=== PATIENT | male | born 1965 | race Caucasian/White ===

== ENCOUNTER 2022-05-12 08:25 | Outpatient (CLI) | payer OTHER, SELFPAY ==
[2022-05-12 08:51] LABS: Kit Draw Collected
== END 2022-05-12 08:26 | disposition home or self-care (01) ==
LOC: ANHGOSHLAB 08:28
PROVIDERS: PCP Family Medicine; Visit Provider Family Medicine
DX: I10 Essential (primary) hypertension (principal); Z13.220 Encounter for screening for lipoid disorders; Z12.5 Encounter for screening for malignant neoplasm of prostate
CPT/HCPCS: 36415

== ENCOUNTER 2022-07-06 07:56 | Day surgery (SDC) | payer OTHER, SELFPAY ==
[2022-06-22 14:42] VITALS: BMI 32.5
--- NOTE | 2022-07-03 14:24 | PM.HPGS ---
History of Present Illness History of Present Illness Consent: Risks, benefits, and alternatives have been discussed and questions answered. Patient agrees to proceed with procedure. Chief complaint: Neoplasm Screening, History of Polyps Narrative: Esteban Robison is a 57 year old male Who was referred for colon cancer screening. Seven years ago he had 1 polyp removed. Review of Systems Review of Systems: All systems reviewed & are unremarkable except as noted in HPI and below PMFSH Past Medical History Medical History Arthritis of right acromioclavicular joint Essential (primary) hypertension Obesity, unspecified Subacromial impingement of right shoulder Surgical History Surgical History History of surgery on wrist right- 1999 Family History Family History Sibling Family history of osteoarthritis Mother Family history of lung cancer Father Family history of malignant neoplasm of esophagus Social History Social History Smoking status: Former smoker Tobacco type: cigarettes Second hand tobacco smoke exposure: No Alcohol intake: current Drinks per week: 3 Alcohol use details: beer/wine occasionally Substance use: never Substance use type: does not use Living arrangements: with family Occupation/Education: occupation 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 Gender identity (if verbalized by the patient): Male Spiritual care concerns: No Meds Home Medications and Allergies Home Medications Medication Instructions Recorded Confirmed Type amlodipine 10 mg tablet 10 mg PO DAILY 06/22/22 07/06/22 History Allergies Allergy/AdvReac Type Severity Reaction Status Date / Time No Known Allergies Allergy Verified 07/06/22 09:21 Exam Const: General: alert Orientation/consciousness: patient oriented x3 Resp: Auscultation: clear to auscultation bilaterally Cardio: Rhythm: regular rhythm GI: GI Palp: Yes Soft to palpation and No Tenderness to palpation present (GI) Neuro: General: patient oriented x3 Assessment and Plan Assessment and plan (1) Colon cancer screening: Code(s): Z12.11 - Encounter for screening for malignant neoplasm of colon Status: Acute Assessment and Plan: Colonoscopy with possible biopsy or polypectomy or cautery or injection of substances.
--- NOTE | 2022-07-06 07:22 | WPDANESEPPF ---
Anes - Initial Pre Proc Eval Procedure: Operation Date: 07/06/22 10:00 Proposed Procedures p Screening Colonoscopy - Tye Guerrero MD Date/Time: 07/06/22 07:22 Surgeon: Tye Guerrero MD Pre Op Diagnosis: Neoplasm Screening, History of Polyps Patient Data Age: 57 Gender: M Height: 1.75 m Weight: 100 kg Allergies Allergy/AdvReac Type Severity Reaction Status Date / Time No Known Allergies Allergy Verified 07/06/22 09:21 Home Medications Medication Instructions Recorded Confirmed Type amlodipine 10 mg tablet 10 mg PO DAILY 06/22/22 07/06/22 History Patient hx anesthesia problems: none Family hx anesthesia problems: none Results Review: All pre-operative results and documents have been reviewed as part of the pre-operative evaluation. [facility] Past Medical History Medical History (Updated 07/03/22 @ 14:24 by Tye Guerrero MD) Arthritis of right acromioclavicular joint Essential (primary) hypertension Obesity, unspecified Subacromial impingement of right shoulder Surgical History Surgical History History of surgery on wrist right- 1999 Family History Family History Sibling Family history of osteoarthritis Mother Family history of lung cancer Father Family history of malignant neoplasm of esophagus Social History Social History Smoking status: Former smoker Tobacco type: cigarettes Second hand tobacco smoke exposure: No Alcohol intake: current Drinks per week: 3 Alcohol use details: beer/wine occasionally Substance use: never Substance use type: does not use Living arrangements: with family Occupation/Education: occupation 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 Informed Consent: The patient's anesthetic plan and its attendant risks and benefits were discussed with the patient/family/POA. Questions were solicited and answers provided to the satisfaction of the patient/family/POA.
[2022-07-06 09:05] VITALS: BP 135/88; PULSE 70; RESP 18; TEMP 36.4; O2SAT 100
[2022-07-06] MEDS: LACTATED RINGERS 1,000 ML 150 ML IV CONT (09:24)
[2022-07-06 10:15] VITALS: BP 104/85; PULSE 77; RESP 16; O2SAT 96
[2022-07-06 10:25] VITALS: BP 123/84; PULSE 68; RESP 14; O2SAT 98
[2022-07-06 10:35] VITALS: BP 120/75; PULSE 59; RESP 15; O2SAT 99
--- NOTE | 2022-07-06 12:03 | WPDANESPN ---
Anes - Prog Note Post-Op Date/Time: 07/06/22 12:03 Cardiovascular status: normal Respiratory status: normal Airway patency: baseline Mental status: baseline Post-Op hydration status: normal Vital Signs: Last Vital Signs Temp 36.4 C 07/06/22 09:05 Pulse 59 L 07/06/22 10:35 Resp 15 07/06/22 10:35 BP 120/75 07/06/22 10:35 Pulse Ox 99 07/06/22 10:35 O2 Del Method Room Air 07/06/22 10:35 Pain Score (VAS): 0 I/O: Intake & Output 07/05/22 07/06/22 07/06/22 23:59 07:59 15:59 Intake Total 500 Balance 500 Post-procedural complaints: none Patient Feedback: Patient satisfied with anesthetic care. Other Findings: Patient vital signs back to baseline. Patient denies nausea and vomiting. Patient's pain under control. Patient OK for discharge.
== END 2022-07-06 10:55 | disposition home or self-care (01) ==
PROVIDERS: PCP Family Medicine; Visit Provider Internal Medicine Gastroenterology
PROC: 0DJD8ZZ Inspection of Lower Intestinal Tract, Via Natural or Artificial Opening Endoscopic (ICD-10-PCS; CPT 45378; principal; 2022-07-06 10:00)
DX: Z12.11 Encounter for screening for malignant neoplasm of colon (principal)
CPT/HCPCS: 45378

== ENCOUNTER 2022-07-09 13:30 | Outpatient (RCR) | payer OTHER, SELFPAY ==
[2022-06-18 13:32] VITALS: BP_SYST 100
--- NOTE | 2022-06-18 14:52 | PTOPEVAL1 ---
Assessment and note entered by Yaquelin Youssef, PT, DPT Evaluation Information Assessment Status Evaluation Diagnosis R shoulder pain Onset 1 month Subjective Information Pt states 8 years ago he had this same shoulder pain. He states 3-4 weeks ago this pain started again without an ANTIONETTE. He states he was given a cortisone injection which has helped a lot. He states he is still limited with overhead motion. He states he has good days and bad days regarding pain and motion. He reports 0/10 at rest, and 7/ 10 at the worst in the last week. Reported Pain Level Pain Score 0: Self Report Assessment PT Clinical Summary Esteban presents to therapy today for his initial evaluation with a diagnosis of R shoulder adhesive capsulitis. Today he demonstrates active flexion and abduction to ~90 deg each, passive flexion is to ~140 deg, and passive abduction to 100deg. He demonstrates good strength abbey laterally with only minor increases in discomfort with near max pressure on the R shoulder. Pt report intermittent catching pains when reaching overhead or when moving quickly. Skilled physical therapy services are indicated to address the deficits noted above, to manage pain, and to return to baseline function . Plan of Care Interventions Manual Therapy,Neuro Re-education,Patient/ Caregiver Educati,Therapeutic Activities, Therapeutic Exercise PT Services Indicated Yes Treatment Frequency and 1x/wk for 5 wks Duration These treatments will address the objective and functional deficits as defined above. The patient will be advanced safely and appropriately in order for the patient to progress towards his/her prior level of function. Additional exercises will be introduced and as well as a comprehensive home exercise program upon discharge, if needed, ?to ensure carryover of functional gains achieved in the clinic. This treatment plan has been reviewed and agreement upon by the patient.
[2022-07-09 13:32] VITALS: BP_SYST 100
--- NOTE | 2022-07-09 14:15 | PTOPDC ---
Assessment and note entered by Yaquelin Youssef, PT, DPT Evaluation Information Assessment Status Discharge Diagnosis R shoulder pain Onset 1 month Subjective Information Pt states he shoulder is doing great. He states he shoulder was feeling great, he states he thinks he slept on it wrong a few nights ago and it is still a little sore. Pt reports 100% improvement in overall symptoms. Reported Pain Level Pain Score 0: Self Report Assessment PT Clinical Summary Esteban Stokes presents to therapy today for his progress report following 3 visits of skilled therapy to treat his R shoulder pain. Today he reports no shoulder pain at rest, and no catching sensations in the last 3 weeks. He demonstrates nearly quad active ROM, and equal muscle strength bilaterally. He has met all of his therapy goals and reports no functional deficits. He will be discharged from therapy at this time. Plan of Care PT Services Indicated No Treatment Frequency and to be discharged Duration
== END 2022-07-09 15:27 | disposition home or self-care (01) ==
LOC: ANHGOSHPT 13:30
PROVIDERS: PCP Family Medicine; Visit Provider Orthopaedic Surgery
DX: M75.00 Adhesive capsulitis of unspecified shoulder (principal)
CPT/HCPCS: 97110; 97112; 97140; 97161

== ENCOUNTER 2022-08-04 09:00 | Outpatient (NON) | payer OTHER, SELFPAY | END 2022-08-04 09:01 | disposition home or self-care (01) | LOC: ANHLAB 08-05 09:42 | PROVIDERS: PCP Family Medicine; Visit Provider Nurse Practitioner | DX: R22.9 Localized swelling, mass and lump, unspecified (principal) | CPT/HCPCS: 88304 ==

== ENCOUNTER → 2023-03-12 12:28 | Outpatient (CLI) | payer OTHER, SELFPAY ==
--- NOTE | ~2023-03-12 | MR_ITS ---
EXAMINATION: MR shoulder RT wo con DATE: 03/12/2023 13:23 INDICATION: Impingement syndrome of right shoulder. Right shoulder pain. TECHNIQUE: Magnetic resonance imaging (MRI) of the right shoulder was performed without intravenous c ontrast. Sequences included axial PD-weighted FS FSE, coronal oblique PD-weighted FS FSE and T2-weigh elliot FS FSE, and sagittal oblique T2-weighted FS FSE and T1-weighted FSE. COMPARISON: Right shoulder radiographs 06/10/2022 FINDINGS: Coracoacromial arch: The acromion undersurface is curved in morphology (type II). Subacromial spurring is noted. There is severe acromioclavicular joint osteoarthritis. There is moderate subacromial/subdeltoid bursitis. Rotator cuff: There is a full-thickness tear of supraspinatus tendon measuring 13 mm anterior to posterior by 17 mm proximal to distal. There is an interstitial tear of infraspinatus tendon. Teres minor tendon is nor mal. There is mild subscapularis tendinopathy. There is no asymmetric fatty atrophy of the rotator cu ff muscle bellies. Biceps tendon and glenoid labrum: Biceps tendon is in bicipital groove. There is mild intra-articular biceps tendinopathy. There is deg enerative tearing of the glenoid labrum. Fluid: There is a small glenohumeral joint effusion. Bones/cartilage: There is shallow partial-thickness cartilage loss of glenoid and humeral head. IMPRESSION: 1. Full-thickness rotator cuff tear. 2. Mild glenohumeral joint chondrosis. 3. Small glenohumeral joint effusion and moderate subacromial/subdeltoid bursitis. 4. Severe acromioclavicular joint osteoarthritis. 5. Mild intra-articular biceps tendinopathy. Reviewed, dictated and finalized at location A. IMPRESSION: 1. Full-thickness rotator cuff tear. 2. Mild glenohumeral joint chondrosis. 3. Small glenohumeral joint effusion and moderate subacromial/subdeltoid bursit is. 4. Severe acromioclavicular joint osteoarthritis. 5. Mild intra-articular biceps tendinopathy.
== END ==
PROVIDERS: PCP Family Medicine; Visit Provider Orthopaedic Surgery
DX: M75.41 Impingement syndrome of right shoulder (principal); M75.101 Unspecified rotator cuff tear or rupture of right shoulder, not specified as traumatic; M19.011 Primary osteoarthritis, right shoulder; M25.411 Effusion, right shoulder
CPT/HCPCS: 73221

== ENCOUNTER 2023-04-08 13:13 | Outpatient (CLI) | payer OTHER, SELFPAY ==
--- NOTE | 2023-04-08 13:25 | ECG_ITS ---
Measurements Intervals [place] Rate: 57 P: 29 NH: 157 QRS: 4 QRSD: 88 T: 0 QT: 427 QTc: 418 Interpretive Statements SINUS BRADYCARDIA CONSIDER INFERIOR INFARCT, AGE INDETERMINATE BASELINE ARTIFACT- I, III, AVR, AVL, AVF ABNORMAL ECG NO PREVIOUS ECG AVAILABLE FOR COMPARISON Electronically Signed On 04-08-2023 13:33:42 RELATIONSHIP ADVISOR by Hossein Mantilla D.O.
== END 2023-04-08 13:14 | disposition home or self-care (01) ==
PROVIDERS: PCP Family Medicine; Visit Provider Orthopaedic Surgery
DX: I10 Essential (primary) hypertension (principal); R94.31 Abnormal electrocardiogram [ECG] [EKG]
CPT/HCPCS: 93005

== ENCOUNTER 2023-04-12 02:06 | Day surgery (SDC) | payer OTHER, SELFPAY ==
[2023-04-06 13:43] VITALS: BMI 33.2
--- NOTE | 2023-04-06 14:37 | PC.NURSE ---
Report to the Outpatient Waiting Room, entrance under the green pavilion located off [facility], at time _1130_ on date _[id number]_. Planned Procedure Time: _130pm_. Time changes happen often and if your time is changed the preop area will call you the afternoon before. - You and your visitor will be asked to self-screen and do not enter if you have any COVID symptoms. - A mask is optional within the hospital at this time. Patients may have clear liquids (water, carbonated beverages, clear teas, apple juice) until 3 hours prior to surgery with a maximum of 20 ounces. - No food from midnight until time of surgery Take the following medications with a SIP of water the morning of surgery: ___Amlodipine DO NOT STOP ANY OF YOUR OTHER PRESCRIPTION MEDICATIONS PRIOR TO SURGERY ?EXCEPT THE FOLLOWING Medications to discontinue per physician ____None Date to take last dose Please no make-up, nail anguillan, hairspray, perfume, deodorant, or body powder the day of surgery. No jewelry (including any body piercings) or valuables the day of surgery, leave them at home. Please take a shower or bath the night before, or the morning of, surgery with an antibacterial soap. Wear comfortable, loose fitting clothing. - Jewelry must be removed prior to entering the operating room. Rings and piercings that are not removed may be cut off. - The hospital will not accept responsibility for valuables. - Please leave all valuables, including medications, at home the day of surgery. If you are going home after surgery, a licensed tanker truck driver must drive you home. - NO public transportation without another adult if you receive anesthesia. - We recommend that an adult stay with you for 24 hours following discharge. - We also recommend that you do not drive, make important decision, drink alcoholic beverages, or take any drugs that were not prescribed by your health care provider for at least 24 hours after your discharge time. Follow any additional instructions given to you from your surgeon. If you or anyone in your household have experienced Covid symptoms in the past week, please notify your surgeon or the nurse liaison at the phone number below for possible testing. Telephone instructions given to ___Bob___and asked if any additional questions and then verbalized understanding. Patient advised to call surgeon office or pre surgery nurse liaison [phone] if any additional questions.
[2023-04-12] VITALS (7 sets, daily range): BP systolic 95–146; BP diastolic 57–82; PULSE 65–108; RESP 16–20; TEMP 36.2–36.4; O2SAT 90–100
[2023-04-12] MEDS: ACETAMINOPHEN 500 MG TABLET 1000 MG PO (11:57)
[2023-04-12] MEDS: LACTATED RINGERS 1,000 ML 30 ML IV CONT (12:05)
[2023-04-12] MEDS: KETOROLAC 15 MG/ML VIAL (*BKC) IV PUSH (12:10)
--- NOTE | 2023-04-12 12:37 | WPDANESEPPF ---
Anes - Initial Pre Proc Eval Procedure: Operation Date: 04/12/23 13:30 Proposed Procedures p Right Rotator Cuff Repair with Distal Clavicle Excision - Oliver Matos MD Date/Time: 04/12/23 12:37 Surgeon: Oliver Matos MD Pre Op Diagnosis: Rt Rot Cuff Tear, AC Arthritis Patient Data Age: 58 Gender: M Height: 1.75 m Weight: 103 kg Last Vital Signs Temp 36.2 C L 04/12/23 11:44 Pulse 65 04/12/23 11:44 Resp 20 04/12/23 11:44 BP 146/74 H 04/12/23 11:44 Pulse Ox 100 04/12/23 11:44 O2 Del Method Room Air 04/12/23 11:44 Allergies Allergy/AdvReac Type Severity Reaction Status Date / Time No Known Allergies Allergy Verified 04/12/23 11:48 Home Medications Medication Instructions Recorded Confirmed Type amlodipine 10 mg tablet 10 mg PO DAILY 06/22/22 04/12/23 History Patient hx anesthesia problems: none Family hx anesthesia problems: none Results Review: All pre-operative results and documents have been reviewed as part of the pre-operative evaluation. [facility] Past Medical History Medical History Arthritis of right acromioclavicular joint Essential (primary) hypertension Obesity, unspecified Right rotator cuff tear Surgical History Surgical History History of surgery on wrist right- 1999 Family History Family History Sibling Family history of osteoarthritis Mother Family history of lung cancer Father Family history of malignant neoplasm of esophagus Social History Social History Smoking status: Former smoker Tobacco type: cigars Second hand tobacco smoke exposure: No Additional smoking assessment comments: Occasional cigar in past, none 4 years. 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 Informed Consent: The patient's anesthetic plan and its attendant risks and benefits were discussed with the patient/family/POA. Questions were solicited and answers provided to the satisfaction of the patient/family/POA.
--- NOTE | 2023-04-12 12:51 | WPDHPUPDATE1 ---
History and Physical Update Update Date/Time: 04/12/23 12:51 History and Physical has been reviewed, including an updated exam of the patient. There are NO changes in the patient's condition. Risks, benefits, and alternatives have been discussed and questions answered. Patient agrees to proceed with procedure.
--- NOTE | 2023-04-12 12:59 | WPDHPUPDATE1 ---
History and Physical Update Update Date/Time: 04/12/23 12:59 History and Physical has been reviewed, including an updated exam of the patient. There are NO changes in the patient's condition. Risks, benefits, and alternatives have been discussed and questions answered. Patient agrees to proceed with procedure.
--- NOTE | 2023-04-12 13:19 | WPDANESPNB ---
Anes - Peripheral Nerve Block Date/Time: 04/12/23 13:19 I have discussed with the patient/family/POA the placement of a peripheral nerve block for post-operative pain management, including associated risks, benefits, complications, and side effects. Alternative methods of post-operative analgesia were detailed. Questions were solicited and answers provided to the satisfaction of the patient/family/POA. Time-Out: A pre-procedural Time-Out was completed immediately before starting the procedure and confirmed: Patient Identification, Site, Procedure, Patient Position and the Availability of Requisite Equipment. Clinical Indications: Acute post-operative pain management requested by the operative surgeon. Nerve Block Insertion Note Anes-nerve block: interscalene right Patient position: supine Skin prep: chlorhexidine Needle: 22 gauge, stimulating, insulated echogenic needle. Needle length: 50 mm Technique: ultrasound Injectate: bupivacaine 0.5% with epi 5 mcg/ml (30cc no epi) and dexamethasone (mg) (20) Observations: tolerated well Complications: none Procedure start time:: 0 Procedure end time:: 1314
[2023-04-12] MEDS: ceFAZolin 2 GM/D5W 50 ML 2 GM/50 ML BAG IVPB (13:29)
[2023-04-12] MEDS: BUPIVACAINE/EPINEPHRINE 0.5% 10 ML VIAL INFILTRATE (14:11)
--- NOTE | 2023-04-12 14:49 | W.PM.PROC2 ---
Procedure Note - Detailed Date of Procedure 04/12/23 Pre-op Diagnosis Rt Rot Cuff Tear, AC Arthritis Post-op Diagnosis Same Procedure Performed Right shoulder rotator cuff repair with distal clavicle excision Surgeon Oliver Matos MD Vice President Of Recruiting Ricki Guaman Anesthesia General and Regional Description of Procedure Patient was identified and proper site identified. In the preop holding area the anesthesia team performed a right upper extremity block. He was then taken to the operating room and transferred to the or table taking care to pad the torso and extremities. After general anesthetic induction and intubation, he was put in a semi beach chair position in the usual manner for a right shoulder procedure. His head was secured taking care to neither rotate nor extend the head and neck. The right upper extremity was prepped and draped free in usual sterile fashion. The subcutaneous tissue in the area of the incision was injected with 10 cc of 0.25% Marcaine and epinephrine solution. An oblique anterior incision was made extending from the AC joint distally in line with the fibers of the deltoid. Subcutaneous tissue was sharply dissected down to the deltoid fascia. The deltoid was dissected off the anterior portion of the acromion in the distal end of the clavicle. A 2 cm split was made at the junction between the anterior and middle thirds of the deltoid. Using the microsagittal saw the last 8 mm of clavicle removed. The saw was also used to perform the acromioplasty and then the undersurface of the acromion was rasped smooth. Thickened bursa was removed from the rotator cuff allowing for inspection. There is an erosive type tear centrally and the supraspinatus. The tuberosity was prepared for repair and the tendon edges freshened up. The tendon was advanced back to the greater tuberosity and then fixed with 2. Ethibond suture in a double row technique. This gave a a nation repair which was stable as the shoulder was taken through range of motion. The wound was irrigated with sterile NaCl solution. The deltoid was repaired back to the acromion with 2. Ethibond suture passed through bone and the remainder of the deltoid repair carried out with 2. Vicryl. Subcutaneous tissue was reapproximated with 2. Strata fix and then tissue adhesive used for the skin. Sterile dressing was applied. There were no known intraoperative complications, and perioperative antibiotics were administered. Estimated Blood Loss 20 Drains No Pathology None sent Complications No immediate complications Condition Stable Disposition PACU [facility] Billing Surgery - Charge Forward: Surgery Billing ([id number], [id number])
== END 2023-04-12 16:50 | disposition home or self-care (01) ==
PROVIDERS: PCP Family Medicine; Visit Provider Orthopaedic Surgery
PROC: (CPT 23420; principal; 2023-04-12 13:30)
DX: M75.101 Unspecified rotator cuff tear or rupture of right shoulder, not specified as traumatic (principal); M19.012 Primary osteoarthritis, left shoulder; I10 Essential (primary) hypertension; Z87.891 Personal history of nicotine dependence; F10.90 Alcohol use, unspecified, uncomplicated
CPT/HCPCS: 23120; 23412; A4565; A9270; J0690; J1100; J1170; J1200; J1885; J2250; J2405; J2704; J3010; J7120

== ENCOUNTER 2023-04-29 15:46 | Outpatient (CLI) | payer OTHER, SELFPAY ==
[2023-04-29 16:20] LABS: Hematocrit 45.9 % (42.0-52.0); Hemoglobin 14.8 g/dL (14.0-18.0)
[2023-04-29 16:29] LABS: Albumin Level 4.8 g/dL (3.5-5.1); Estimated Glomerular Filt Rate > 60; Glucose 91 mg/dL (65-110)
[2023-04-29 17:41] LABS: Hemoglobin A1C 5.2 % (<5.7)
[2023-04-29 18:03] LABS: Urine Cotinine NEGATIVE
== END 2023-04-29 15:47 | disposition home or self-care (01) ==
LOC: ANHLAB 15:47
PROVIDERS: PCP Family Medicine; Visit Provider Orthopaedic Surgery
DX: M16.11 Unilateral primary osteoarthritis, right hip (principal)
CPT/HCPCS: 80307; 82040; 82565; 82947; 83036; 85014; 85018

== ENCOUNTER 2023-05-04 08:26 | Outpatient (CLI) | payer OTHER, SELFPAY ==
[2023-05-04 19:40] LABS: Alanine Aminotransferase 34 U/L (6-50); Albumin Level 4.4 g/dL (3.5-5.1); Alkaline Phosphatase 104 U/L (38-126); Anion Gap 8 mmol/L (8-16); Aspartate Amino Transferase 36 U/L (17-59); Bilirubin,Total 0.6 mg/dL (0.2-1.3); Blood Urea Nitrogen 13 mg/dL (9-20); Calcium 9.1 mg/dL (8.4-10.2); Carbon Dioxide 30 mmol/L (22-30); Chloride 103 mmol/L (98-107); Cholesterol 176 mg/dL (0-200); Estimated Glomerular Filt Rate > 60; Glucose 88 mg/dL (65-110); HDL Direct 56 mg/dL; Potassium 3.9 mmol/L (3.4-5.0); Sodium 141 mmol/L (137-145); Triglycerides 84 mg/dL (<150)
[2023-05-04 19:50] LABS: LDL Cholesterol Direct 96 mg/dL
[2023-05-04 20:05] LABS: Prostate Specific Antigen 1.6 ng/mL (< OR = 4.0)
== END 2023-05-04 08:27 | disposition home or self-care (01) ==
LOC: ANHGOSHLAB 08:28
PROVIDERS: PCP Family Medicine; Visit Provider Family Medicine
DX: Z13.228 Encounter for screening for other metabolic disorders (principal); Z13.220 Encounter for screening for lipoid disorders; Z12.5 Encounter for screening for malignant neoplasm of prostate
CPT/HCPCS: 36415; 80053; 80061; 84153; G0103

== ENCOUNTER → 2023-05-26 08:31 | Outpatient (CLI) | payer OTHER, SELFPAY ==
--- NOTE | ~2023-05-26 | XR_ITS ---
EXAMINATION: XR shoulder RT min 2V DATE: 05/26/2023 08:46 INDICATION: Unspecified rotator cuff tear or rupture. TECHNIQUE: 4 views of right shoulder were obtained. COMPARISON: Right shoulder radiographs 06/10/2022 FINDINGS: Bone alignment is normal. No fracture. There is mild osteoarthritis of glenohumeral joint a nd severe osteoarthritis of acromioclavicular joint. IMPRESSION: 1. Polyarticular osteoarthritis. Reviewed, dictated and finalized at location E. ER MAKER HAND
== END ==
PROVIDERS: PCP Orthopaedic Surgery; Visit Provider Orthopaedic Surgery
DX: M75.101 Unspecified rotator cuff tear or rupture of right shoulder, not specified as traumatic (principal); M19.011 Primary osteoarthritis, right shoulder
CPT/HCPCS: 73030

== ENCOUNTER 2023-06-10 08:00 | Outpatient (RCR) | payer OTHER, SELFPAY ==
[2023-04-14 14:26] VITALS: BP_SYST 110
--- NOTE | 2023-04-14 15:34 | OPREHPOC ---
Outpatient Therapy Plan of Care This is a Multidisciplinary Plan of Care that may contain components documented by all disciplines (PT, OT, and ST.) PT Problem 1 PT Problem #1 Knowledge Deficit PT Goal 1 Goal Pt to be IND with issued HEP Target Visit 12 PT Problem 2 PT Problem #2 Pain PT Goal 1 Goal Pt to report R shoulder pain no greater than 3/10 in the last week. Target Visit 12 PT Goal 2 Goal Pt to report 75% improvement in overall symptoms Target Visit 12 PT Problem 3 PT Problem #3 Impaired Range of Motion PT Goal 1 Goal Pt to demonstrate R active shoulder flexion to 120 deg when protocol allows Target Visit 12 PT Goal 2 Goal Pt to demonstrate R active shoulder abduction to 140 deg when protocol allows Target Visit 12 PT Problem 4 PT Problem #4 Impaired Strength PT Goal 1 Goal Pt to be able to lift and carry 30lb from ground level - when protocol allows Target Visit 12 PT Goal 2 Goal Pt to be able to lift 5lb overhead - when protocol allows Target Visit 12 PT Problem 5 PT Problem #5 Impaired Functional Mobil PT Goal 1 Goal Pt to improve UEFI score from 11/80 to 60/80 Target Visit 12
--- NOTE | 2023-04-14 15:35 | PTOPEVAL1 ---
Assessment and note entered by Yaquelin Youssef, PT, DPT Evaluation Information Assessment Status Evaluation Diagnosis R RTC repair and clavicle excision Onset 04/12/23 Subjective Information Pt had a R RTC repair on 04/12/23. He states so far his pain has been well controlled. Reported Pain Level Pain Score 0: Self Report Assessment PT Clinical Summary Esteban presents to therapy today for his initial evaluation following a R RTC repair on 04/12/23. Today he demonstrates decreased passive ROM consistent with his procedure. He was educated in a elbow and wrist HEP, education on his surgical protocol, and given scapular stability exercises. Skilled therapy services are indicated to address ROM, strength, and pain limitations consistent with his procedure, to progress through therapy protocol, and to return to OF. UEFI: Plan of Care Interventions Electrical Stimulation,Hot Pack/Cold Pack, Intermittent Compression,Manual Therapy,Neuro Re- education,Patient/Caregiver Educati,Therapeutic Activities,Therapeutic Exercise PT Services Indicated Yes Treatment Frequency and 2-3x/wk for 12 visits Duration These treatments will address the objective and functional deficits as defined above. The patient will be advanced safely and appropriately in order for the patient to progress towards his/her prior level of function. Additional exercises will be introduced and as well as a comprehensive home exercise program upon discharge, if needed, ?to ensure carryover of functional gains achieved in the clinic. This treatment plan has been reviewed and agreement upon by the patient.
[2023-05-13 15:36] VITALS: BP_SYST 110
--- NOTE | 2023-05-13 16:32 | PTOPPROG ---
Assessment and note entered by Yaquelin Youssef, PT, DPT Evaluation Information Assessment Status Progress Diagnosis R RTC repair and clavicle excision Onset 04/12/23 Subjective Information Pt states he is progressing really well. He reports excellent compliance with his HEP. He states getting comfortable to sleep is still his biggest challenge. Assessment PT Clinical Summary Esteban presents to therapy today for his progress report following 11 visits of skilled therapy to treat the deficits related to a R RTC repair on . Today he demonstrates improved active and passive shoulder ROM compared to his initial visit but still decreased from his L shoulder. He is progressing as expected towards his therapy goals. Continuation of skilled therapy services are indicated to further progress towards therapy goals , shoulder strength, and to return to PLOF. UEFI: 67/80 Plan of Care Interventions Electrical Stimulation,Hot Pack/Cold Pack, Intermittent Compression,Manual Therapy,Neuro Re- education,Patient/Caregiver Educati,Therapeutic Activities,Therapeutic Exercise PT Services Indicated Yes Treatment Frequency and 2-3x/wk for 12 visits Duration These treatments will address the objective and functional deficits as defined above. The patient will be advanced safely and appropriately in order for the patient to progress towards his/her prior level of function. Additional exercises will be introduced and as well as a comprehensive home exercise program upon discharge, if needed, ?to ensure carryover of functional gains achieved in the clinic. This treatment plan has been reviewed and agreement upon by the patient.
--- NOTE | 2023-05-26 10:40 | PCPTNOTE ---
Patient called to cancel/reschedule today's appointment.
[2023-06-10 08:02] VITALS: BP_SYST 135
--- NOTE | 2023-06-10 09:38 | PTOPDC ---
Assessment and note entered by Yaquelin Youssef, PT, DPT Evaluation Information Assessment Status Discharge Diagnosis R RTC repair and clavicle excision Onset 04/12/23 Subjective Information Pt states he things his shoulder is doing really well. He reports mild muscle soreness after completing therapy. He reports about 90% return to his PLOF. He states at times he will get a quick catching pain, this happened yesterday when talking a sweatshirt off. Reported Pain Level Pain Score 0: Self Report Pain Score 0: Self Report Assessment PT Clinical Summary Esteban presents to therapy today for his progress report following 20 visits of skilled therapy to treat the deficits related to a R RTC repair on . Today he demonstrates improved active shoulder flexion and abduction to 135 deg each. He demonstrates strength ~90% of his L shoulder. He has met or progressed well towards his therapy goals and no longer requires skilled services. He will be discharged at this time. UEFI: 77/80
== END 2023-06-10 11:32 | disposition home or self-care (01) ==
LOC: ANHGOSHPT 08:00
PROVIDERS: PCP Family Medicine; Visit Provider Orthopaedic Surgery
DX: Z48.89 Encounter for other specified surgical aftercare (principal); Z98.890 Other specified postprocedural states
CPT/HCPCS: 97110; 97140; 97161; 97530

== ENCOUNTER 2023-07-12 11:54 | Outpatient (CLI) | payer OTHER, SELFPAY ==
[2023-07-12 14:16] LABS: Basophils Absolute Auto 0.1 K/mm3 (0.0-0.1); Basophils Percent Auto 0.9 % (0.2-1.2); Eosinophils Absolute Auto 0.6 K/mm3 (0-0.3); Eosinophils Percent Auto 7.7 % (0-4.4); Hematocrit 43.7 % (42.0-52.0); Hemoglobin 14.1 g/dL (14.0-18.0); Immature Granulocyte Absolute 0.02 K/mm3 (0.00-0.031); Immature Granulocyte Percent A 0.3 % (0-0.5); Lymphocytes Absolute Auto 2.92 K/mm3 (0.9-3.2); Lymphocytes Percent Auto 37.5 % (18.3-44.2); Mean Corpuscular HGB Conc 32.3 g/dl (32-36); Mean Corpuscular Hemoglobin 28.1 pg (26-34); Mean Corpuscular Volume 87.1 fl (80-100); Monocytes Absolute Auto 0.5 K/mm3 (0.1-0.6); Monocytes Percent Auto 6.6 % (2.6-8.5); Neutrophils Absolute Auto 3.7 K/mm3 (1.3-6.7); Platelet Count Result 270 k/mm3 (150-375); Red Blood Count 5.02 M/mm3 (4.6-6.20); Red Cell Distribution Width 12.9 % (11.5-14.5); White Blood Count 7.8 K/mm3 (4.5-10.0)
[2023-07-12 14:25] LABS: Urine Cotinine NEGATIVE
[2023-07-12 14:41] LABS: Albumin Level 4.3 g/dL (3.5-5.1); Estimated Glomerular Filt Rate > 60; Glucose 83 mg/dL (65-110)
[2023-07-12 14:51] LABS: Hemoglobin A1C 5.4 % (<5.7)
[2023-07-12 15:26] LABS: MRSA (PCR) NOT DETECTED (NOT DETECTE)
== END 2023-07-12 11:55 | disposition home or self-care (01) ==
PROVIDERS: PCP Family Medicine; Visit Provider Orthopaedic Surgery
DX: M16.11 Unilateral primary osteoarthritis, right hip (principal); Z01.818 Encounter for other preprocedural examination
CPT/HCPCS: 80307; 82040; 82565; 82947; 83036; 85025; 87641

== ENCOUNTER 2023-08-05 01:16 | Day surgery (SDC) | payer OTHER, SELFPAY ==
[2023-07-12 12:03] VITALS: BMI 34.8
--- NOTE | 2023-07-12 12:21 | PC.NURSE ---
Report to the Outpatient Waiting Room, entrance under the green pavilion located off [facility], at time __0600 on date __08/05/23 . Planned Procedure Time: __0730 . Time changes happen often and if your time is changed the preop area will call you the afternoon before. - You and your visitor will be asked to self-screen and do not enter if you have any COVID symptoms. - A mask is optional within the hospital at this time. Patients may have clear liquids (water, carbonated beverages, clear teas, apple juice) until 3 hours prior to surgery (4:30 AM)with a maximum of 20 ounces. - No food from midnight until time of surgery - Infants may have breast milk until 4 hours before surgery, formula 6 hours prior to surgery. - Children will be allowed to drink immediately following surgery. If applicable, please bring a bottle or sippy cup to assist with drinking. Juice, water, soda, and popsicles are readily available. For infants on formula, please bring formula the day of surgery. Pacifiers are allowed. Take the following medications with a SIP of water the morning of surgery: ___AMLODIPINE DO NOT STOP ANY OF YOUR OTHER PRESCRIPTION MEDICATIONS PRIOR TO SURGERY ?EXCEPT THE FOLLOWING Medications to discontinue per physician HOLD ASPIRIN/ALEVE 7 DAYS PRE OP PER DR JONES LAST DOSE 07/29/23 Please no make-up, nail taiwanese, hairspray, perfume, deodorant, or body powder the day of surgery. No jewelry (including any body piercings) or valuables the day of surgery, leave them at home. Please take a shower or bath the night before, or the morning of, surgery with an antibacterial soap. Wear comfortable, loose fitting clothing. Children are encouraged to wear pajamas. - Jewelry must be removed prior to entering the operating room. Rings and piercings that are not removed may be cut off. - The hospital will not accept responsibility for valuables. - Please leave all valuables, including medications, at home the day of surgery. If you are going home after surgery, a licensed pick up driver must drive you home. - NO public transportation without another adult if you receive anesthesia. - We recommend that an adult stay with you for 24 hours following discharge. - We also recommend that you do not drive, make important decision, drink alcoholic beverages, or take any drugs that were not prescribed by your health care provider for at least 24 hours after your discharge time. Follow any additional instructions given to you from your surgeon. If you or anyone in your household have experienced Covid symptoms in the past week, please notify your surgeon or the nurse liaison at the phone number below for possible testing. VERBAL AND WRITTEN instructions given to __PATIENT and asked if any additional questions and then verbalized understanding. Patient advised to call surgeon office or pre surgery nurse liaison [phone] if any additional questions.
[2023-07-12 12:49] VITALS: BP 142/83; PULSE 61; RESP 18; TEMP 36.7; O2SAT 99
--- NOTE | 2023-08-04 13:02 | WPDANESEPPF ---
Anes - Initial Pre Proc Eval Procedure: Operation Date: 08/05/23 07:30 Proposed Procedures p Right Total Hip Arthroplasty - Kalyan Gaxiola MD Date/Time: 08/04/23 13:02 Surgeon: Kalyan Gaxiola MD Pre Op Diagnosis: Prim O A Right Hip Patient Data Age: 58 Gender: M Height: 1.75 m Weight: 106.9 kg Last Vital Signs Temp 36.7 C 07/12/23 12:49 Pulse 61 07/12/23 12:49 Resp 18 07/12/23 12:49 BP 142/83 H 07/12/23 12:49 Pulse Ox 99 07/12/23 12:49 O2 Del Method Room Air 07/12/23 12:49 Allergies Allergy/AdvReac Type Severity Reaction Status Date / Time No Known Allergies Allergy Verified 08/05/23 06:22 Home Medications Medication Instructions Recorded Confirmed Type naproxen sodium 220 mg capsule 220 mg PO BID PRN Pain 04/27/23 07/12/23 History (Aleve) aspirin 325 mg tablet 325 mg PO DAILY 04/29/23 07/12/23 History amlodipine 10 mg tablet 10 mg PO DAILY #90 tabs 08/03/23 Rx Patient hx anesthesia problems: none Family hx anesthesia problems: none Results Review: All pre-operative results and documents have been reviewed as part of the pre-operative evaluation. [facility] Past Medical History Medical History (Updated 08/04/23 @ 13:03 by Filippo Steven DO) Essential (primary) hypertension Obesity, unspecified Ulcer Surgical History Surgical History Arthritis of right acromioclavicular joint DCE April 12, 2023 with rotator cuff repair History of surgery on wrist right- 1999 Right rotator cuff tear Right rotator cuff repair with distal clavicle excision April 12, 2023 Family History Family History Sibling Family history of osteoarthritis Mother Family history of lung cancer Father Family history of malignant neoplasm of esophagus Social History Social History Smoking status: Never smoker Tobacco type: cigars Second hand tobacco smoke exposure: No Additional smoking assessment comments: DENIES ANY FORM OF TOBACCO USE Alcohol intake: current Drinks per week: 2 Alcohol use details: beer/wine occasionally Substance use: never Substance use type: does not use Do You Feel Safe in your Home?: Yes Lack of Transportation: No Lack of Food: Never True Current Housing: Decline to Answer Concerned About Future Housing: Decline to Answer Difficulty Paying Gas/Electric Bills: Decline to Answer Difficulty Paying for Meds: Decline to Answer Currently Unemployed: Decline to Answer Education: Decline to Answer Difficulty w/ Childcare or Family Care: Decline to Answer Living arrangements: with family Occupation/Education: occupation 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 Informed Consent: The patient's anesthetic plan and its attendant risks and benefits were discussed with the patient/family/POA. Questions were solicited and answers provided to the satisfaction of the patient/family/POA.
[2023-08-05] VITALS (10 sets, daily range): BP systolic 95–153; BP diastolic 53–107; PULSE 66–116; RESP 14–18; TEMP 36.2–36.6; O2SAT 96–100
--- NOTE | ~2023-08-05 | XR_ITS ---
EXAMINATION: XR hip RT min 2V DATE: 08/05/2023 10:07 INDICATION: Postoperative evaluation following right total hip arthroplasty TECHNIQUE: Anteroposterior and lateral views of the right hip were obtained. COMPARISON: 03/24/2023 FINDINGS: Interval placement of a noncemented right total hip arthroplasty which appears well seated in near an atomic alignment. Expected subcutaneous gas in the postoperative bed. No fractures identified. IMPRESSION: 1. Right total hip arthroplasty, negative for postoperative purposes. Reviewed, dictated and finalized at location A. ION LEADER AND MACHINE SETTER
[2023-08-05] MEDS: LACTATED RINGERS 1,000 ML 30 ML IV CONT ×2 (06:50→09:36)
[2023-08-05] MEDS: ACETAMINOPHEN 500 MG TABLET 1000 MG PO (06:55)
[2023-08-05] MEDS: TRANEXAMIC ACID 1,000MG/ISO100 1,000 MG/100 ML BAG 200 MG IVPB (06:55)
--- NOTE | 2023-08-05 07:10 | WPDHPUPDATE1 ---
History and Physical Update Update Date/Time: 08/05/23 07:10 History and Physical has been reviewed, including an updated exam of the patient. There are NO changes in the patient's condition. Risks, benefits, and alternatives have been discussed and questions answered. Patient agrees to proceed with procedure.
[2023-08-05] MEDS: ceFAZolin 2 GM/D5W 50 ML 2 GM/50 ML BAG IVPB (07:30)
[2023-08-05] MEDS: SODIUM CHLORIDE 0.9% IV 37.7 ML, MORPHINE SULFATE INJ (*CRX) 2 MG, ROPivacaine HCL 1% 2... INFILTRATE (08:09)
--- NOTE | 2023-08-05 08:11 | SUR.OPER ---
Purple top tubes of blood were drawn by KAIA Sanz @ [id number]. Samples were delivered to the Blood Bank by ASHER Cancino to [facility]. Call received of transfer at [phone].
[2023-08-05] MEDS: fentaNYL CITRATE INJ (*CRX) 100 MCG/2 ML VIAL 25 MCG IV PUSH ×4 (10:04→10:31)
--- NOTE | 2023-08-05 11:57 | W.PM.PROC2 ---
Procedure Note - Detailed Date of Procedure 08/05/23 Pre-op Diagnosis Prim O A Right Hip Post-op Diagnosis Same Procedure Performed Right Total Hip Arthroplasty Surgeon Kalyan Gaxiola MD Implementation Analyst Melissa Mckoy PA-C Anesthesia General Description of Procedure The patient was given preoperative antibiotics. A general anesthetic was administered. The patient was carefully placed in the lateral decubitus position on the PEG board. The shoulders and hips were carefully positioned for component and leg length positioning reference. The hip was prepped and draped in the usual sterile fashion. A longitudinal incision was created over the posterior aspect of the greater trochanter. Careful dissection was brought down through the deep fascia with electrocautery. A minimally invasive optimized posterior approach to the hip was performed. The short external rotators and capsule were taken down in an L-shaped capsulotomy. The tissue was tagged for later repair using number 2 high strength suture. The femoral neck was measured and taken in situ. The femoral head was removed. The acetabulum was carefully exposed. The inferior capsule was released. The labrum was resected. The acetabulum was sequentially reamed to one over the intended cup size. The cup was impacted into position with excellent press-fit. Typical anatomic landmarks, including the bony contact points as well as the inferior transverse acetabular ligament were used to confirm cup positioning with preoperative templating. Attention was turned to the femur, which was carefully exposed. The hip was reamed and then broached sequentially. Excellent press-fit was obtained with the broach. The hip was trialed. Measurements were utilized, including the lesser trochanter as well as the center of the femoral head and the tip of the trochanter, and excellent assessment of the offset and leg lengths were confirmed. The real component was impacted into position. Trialing confirmed appropriate leg length and offset with soft tissue balancing as well apparent feel of the leg, both at the knee and the heel. Soft tissues were assessed using the the iliotibial band. Reduction of the posterior capsule and external rotators were also used as a secondary assessment. The hip was copiously irrigated with pulsatile lavage antibiotic solution periodically throughout the procedure. The real components were then assembled and reduced. The hip was stable throughout typical maneuvers, including extension, external rotation to 70 degrees, the position of sleep as well as flexion to 90 degrees with internal rotation past 35 degrees. The shake test confirmed stability without impingement. Osteophytes were removed as necessary. The short external rotators and capsule were repaired back to the posterior trochanter through drill holes. The deep fascia was repaired with running number 2 barbed suture, followed by 2-0 Stratafix suture and 3-0 Stratafix suture in the dermis. Steri-Strips were placed on the skin, followed by a sterile occlusive dressing. There were no complications. Meticulous hemostasis was maintained with the AquaMantys device. The patient was brought to the recovery room in stable condition. There were no complications. Physician senior assistant manager, Melissa Mckoy PA-C, required for surgery; including patient positioning, draping, tissue retraction, maintaining instrument position, hip dislocation/ relocation, wound closure, and dressing placement. Implants The Accolade II hip stem, 127 degree size 7, was utilized with excellent press-fit. The 54 mm Trident II acetabular component was impacted with excellent press-fit stability. 10 degree elevated polyethylene liner the +5, 36 mm Biolox ceramic femoral head was utilized. Estimated Blood Loss 200 Drains No Packing No Pathology None sent Complications No immediate complications Condition Stable Disposition PACU [facility] Billing Surgery - Charge
[2023-08-05] MEDS: oxyCODONE HCL (*CRX) 5 MG TAB IR PO (12:09)
== END 2023-08-05 12:32 | disposition home or self-care (01) ==
PROVIDERS: PCP Family Medicine; Visit Provider Orthopaedic Surgery
PROC: (CPT 27130; principal; 2023-08-05 07:30)
DX: M16.11 Unilateral primary osteoarthritis, right hip (principal); I10 Essential (primary) hypertension; E66.9 Obesity, unspecified; Z68.34 Body mass index [BMI] 34.0-34.9, adult; Z79.1 Long term (current) use of non-steroidal anti-inflammatories (NSAID); Z79.82 Long term (current) use of aspirin; Z98.890 Other specified postprocedural states; Z80.0 Family history of malignant neoplasm of digestive organs; Z80.1 Family history of malignant neoplasm of trachea, bronchus and lung
CPT/HCPCS: 27130; 36415; 73502; 80307; 82040; 82565; 82947; 83036; 85025; 86850; 86900; 86901; 87641; 97110; 97161; 97165; 97535; A9270; C1776; J0171; J0690; J1100; J1170; J1885; J2250; J2270; J2405; J2704; J2795; J3010; J7120

== ENCOUNTER 2023-09-23 15:42 | Outpatient (CLI) | payer OTHER, SELFPAY ==
--- NOTE | ~2023-09-23 | XR_ITS ---
EXAMINATION: XR hip RT 2V w AP pelvis DATE: 09/23/2023 15:57 INDICATION: Aftercare following joint replacement surgery. TECHNIQUE: An anteroposterior view of the pelvis and 2 views of right hip were obtained. COMPARISON: Right hip radiographs 08/25/2023 FINDINGS: There is a total right hip arthroplasty in near-anatomic alignment. No fracture. No . Prost hetic lucency to suggest loosening or infection. There is moderate left hip osteoarthritis. IMPRESSION: 1. Total right hip arthroplasty in near-anatomic alignment. 2. Moderate left hip osteoarthritis. Reviewed, dictated and finalized at location E.
== END 2023-09-23 15:43 | disposition home or self-care (01) ==
LOC: ANHIMG 15:43
PROVIDERS: PCP Family Medicine; Visit Provider Orthopaedic Surgery
DX: Z47.1 Aftercare following joint replacement surgery (principal); M16.12 Unilateral primary osteoarthritis, left hip
CPT/HCPCS: 73502

== ENCOUNTER 2023-10-08 14:00 | Outpatient (RCR) | payer OTHER, SELFPAY ==
--- NOTE | 2023-09-01 15:59 | OPREHPOC ---
Outpatient Therapy Plan of Care This is a Multidisciplinary Plan of Care that may contain components documented by all disciplines (PT, OT, and ST.) PT Problem 1 PT Problem #1 Knowledge Deficit PT Goal 1 Goal Pt to be IND with issued HEP. Target Visit 4 PT Problem 2 PT Problem #2 Impaired Range of Motion PT Goal 1 Goal Pt to improve passive hip rotation ROM to WNL. Target Visit 8 PT Problem 3 PT Problem #3 Impaired Functional Mobil PT Goal 1 Goal Pt to demonstrate a functional squat and lift of 20lb from ground level without compensations. Target Visit 8 PT Goal 2 Goal Pt to ascend/descend stairs without deviations. Target Visit 8 PT Problem 4 PT Problem #4 Impaired Gait PT Goal 1 Goal Pt to demonstrate 400ft distance during the 2 min walk test. Target Visit 8 PT Problem 5 PT Problem #5 Impaired Functional Mobil PT Goal 1 Goal Pt to demonstrate a floor to stand transfer without external support needed Target Visit 8
--- NOTE | 2023-09-01 15:59 | PTOPEVAL1 ---
Assessment and note entered by Yaquelin Youssef, PT, DPT Evaluation Information Assessment Status Evaluation Diagnosis R USHA Onset 08/05/23 Subjective Information Pt states he had a R USHA on 08/05/23. He is walking with a straight cane. He reports little to no pain . He states his mobility feels limited. 0 Reported Pain Level Pain Score 0: Self Report Assessment PT Clinical Summary Esteban presents to therapy today for his initial evaluation following a R USHA on 08/05/23. Today he demonstrates decreased strength, ROM, and functional mobility consistent with his diagnosis. He ambulates and performs stairs with deviations as well. Skilled therapy services are indicated to address the deficits noted above, to normalize his gait, and to return to [facility]. Plan of Care Interventions Electrical Stimulation,Gait Training,Hot Pack/Cold Pack,Manual Therapy,Neuro Re-education,Patient/ Caregiver Educati,Therapeutic Activities, Therapeutic Exercise PT Services Indicated Yes Treatment Frequency and 1x/wk for 6 visits Duration These treatments will address the objective and functional deficits as defined above. The patient will be advanced safely and appropriately in order for the patient to progress towards his/her prior level of function. Additional exercises will be introduced and as well as a comprehensive home exercise program upon discharge, if needed, ?to ensure carryover of functional gains achieved in the clinic. This treatment plan has been reviewed and agreement upon by the patient.
--- NOTE | 2023-09-09 08:30 | PCPTNOTE ---
Patient unable to been seen Aprtil 10th due to therapist out with illness.
--- NOTE | 2023-10-08 14:44 | PTOPDC ---
Assessment and note entered by Chad Condon, PT Evaluation Information Assessment Status Discharge Diagnosis R USHA Onset 08/05/23 Subjective Information Patient reports that he feels he is doing really well. Has no concerns at this time for discharge and home practice. No concerns with current HEP. Reported Pain Level Pain Score 0: Self Report Assessment PT Clinical Summary Patient has met all goals for therapy and is suitable for discharge to [facility] at this time. Patient is objectively doing well and has no concerns for discharge at this time. He has been released by MD and appears suitable for D/C from skilled therapy as well. Plan of Care PT Services Indicated D/C to HEP
--- NOTE | 2023-10-08 14:45 | OPREHPOC ---
Outpatient Therapy Plan of Care This is a Multidisciplinary Plan of Care that may contain components documented by all disciplines (PT, OT, and ST.) PT Problem 1 PT Problem #1 Knowledge Deficit PT Goal 1 Goal Pt to be IND with issued HEP. Target Visit 4 Progress Met PT Problem 2 PT Problem #2 Impaired Range of Motion PT Goal 1 Goal Pt to improve passive hip rotation ROM to WNL. Target Visit 8 Progress Met PT Problem 3 PT Problem #3 Impaired Functional Mobil PT Goal 1 Goal Pt to demonstrate a functional squat and lift of 20lb from ground level without compensations. Target Visit 8 Progress Met PT Goal 2 Goal Pt to ascend/descend stairs without deviations. Target Visit 8 Progress Met PT Problem 4 PT Problem #4 Impaired Gait PT Goal 1 Goal Pt to demonstrate 400ft distance during the 2 min walk test. Target Visit 8 Progress Met PT Problem 5 PT Problem #5 Impaired Functional Mobil PT Goal 1 Goal Pt to demonstrate a floor to stand transfer without external support needed Target Visit 8 Progress Met
== END 2023-10-08 15:53 | disposition home or self-care (01) ==
LOC: ANHGOSHPT 14:00
PROVIDERS: PCP Family Medicine; Visit Provider Orthopaedic Surgery
DX: Z47.1 Aftercare following joint replacement surgery (principal); Z96.641 Presence of right artificial hip joint
CPT/HCPCS: 97110; 97161; 97530

== ENCOUNTER 2024-05-08 08:37 | Outpatient (CLI) | payer OTHER, SELFPAY ==
[2024-05-08 19:58] LABS: Alanine Aminotransferase 25 U/L (6-50); Albumin Level 4.4 g/dL (3.5-5.1); Alkaline Phosphatase 88 U/L (38-126); Anion Gap 7 mmol/L (4-12); Aspartate Amino Transferase 35 U/L (17-59); Bilirubin,Total 0.4 mg/dL (0.2-1.3); Blood Urea Nitrogen 14 mg/dL (9-20); Calcium 8.9 mg/dL (8.4-10.2); Carbon Dioxide 27 mmol/L (22-30); Chloride 106 mmol/L (98-107); Cholesterol 173 mg/dL (0-200); Estimated Glomerular Filt Rate > 60; Glucose 84 mg/dL (65-110); HDL Direct 60 mg/dL; Potassium 4.5 mmol/L (3.4-5.0); Sodium 140 mmol/L (137-145); Triglycerides 92 mg/dL (<150)
[2024-05-08 20:09] LABS: LDL Cholesterol Direct 87 mg/dL
== END 2024-05-08 08:38 | disposition home or self-care (01) ==
LOC: ANHGOSHLAB 08:38
PROVIDERS: PCP Family Medicine; Visit Provider Student in an Organized Health Care Education/Training Program
DX: I10 Essential (primary) hypertension (principal); E66.09 Other obesity due to excess calories; Z68.33 Body mass index [BMI] 33.0-33.9, adult; Z13.220 Encounter for screening for lipoid disorders; Z12.5 Encounter for screening for malignant neoplasm of prostate
CPT/HCPCS: 36415; 80053; 80061; 84153; G0103

== ENCOUNTER 2025-05-08 09:15 | Outpatient (CLI) | payer OTHER, SELFPAY ==
[2025-05-08 13:01] LABS: Hematocrit 43.6 % (42.0-52.0); Hemoglobin 13.2 g/dL (14.0-18.0); Immature Granulocyte Percent A 0.1 % (0-0.5); Lymphocytes Absolute Auto 2.25 K/mm3 (0.9-3.2); Mean Corpuscular HGB Conc 30.3 g/dl (32-36); Mean Corpuscular Hemoglobin 25.3 pg (26-34); Mean Corpuscular Volume 83.5 fl (80-100); Nucleated Red Blood Cells Absolute Auto 0.000 K/mm3 (0.0-0.012); Nucleated Red Blood Cells Perc 0.0 % (0.0-0.2); Platelet Count Result 259 k/mm3 (150-375); Red Blood Count 5.22 M/mm3 (4.6-6.20); White Blood Count 6.9 K/mm3 (4.5-10.0)
[2025-05-08 13:15] LABS: Alanine Aminotransferase 36 U/L (6-50); Albumin Level 4.8 g/dL (3.5-5.1); Alkaline Phosphatase 90 U/L (38-126); Anion Gap 7 mmol/L (4-12); Aspartate Amino Transferase 47 U/L (17-59); Bilirubin,Total 0.8 mg/dL (0.2-1.3); Blood Urea Nitrogen 10 mg/dL (9-20); Calcium 9.2 mg/dL (8.4-10.2); Carbon Dioxide 26 mmol/L (22-30); Chloride 106 mmol/L (98-107); Cholesterol 217 mg/dL (0-200); Estimated Glomerular Filt Rate > 60; Glucose 93 mg/dL (65-110); HDL Direct 72 mg/dL; Potassium 4.0 mmol/L (3.4-5.0); Sodium 139 mmol/L (137-145); Total Protein 8.0 g/dL (6.3-8.2); Triglycerides 122 mg/dL (<150)
[2025-05-08 13:59] LABS: Prostate Specific Antigen 2.9 ng/mL (< OR = 4.0)
[2025-05-08 14:01] LABS: Thyroid Stimulating Hormone Reflex 1.820 uIU/mL (0.465-4.68)
[2025-05-08 14:10] LABS: Vitamin B12 234.0 pg/mL (239-931)
[2025-05-08 17:30] LABS: Hemoglobin A1C 5.5 % (<5.7)
== END 2025-05-08 09:16 | disposition home or self-care (01) ==
LOC: ANHGOSHLAB 09:16
PROVIDERS: PCP Family Medicine; Visit Provider Family Medicine
DX: Z00.00 Encounter for general adult medical examination without abnormal findings (principal); Z12.5 Encounter for screening for malignant neoplasm of prostate; I10 Essential (primary) hypertension; E78.5 Hyperlipidemia, unspecified; E55.9 Vitamin D deficiency, unspecified; R73.9 Hyperglycemia, unspecified; E53.8 Deficiency of other specified B group vitamins
CPT/HCPCS: 36415; 80053; 80061; 82306; 82607; 83036; 84153; 84443; 85025; G0103